=== PATIENT | male | born 1985 | race Caucasian/White ===

== ENCOUNTER 2025-04-17 21:50 | Emergency (ER) | payer OTHER, SELFPAY ==
[2025-04-17 21:52] VITALS: BP 134/88
[2025-04-17 22:12] LABS: Hematocrit 47.2 % (39.0-52.0); Hemoglobin 16.6 g/dL (13.0-18.0); Mean Corp Hgb Conc. 35.2 g/dL (33.0-37.0); Mean Corpuscular Volume 87.2 fL (80.0-94.0); Nucleated Red Blood Cells % 0 % (-); Platelet Count 207 10^3/uL (130-400); Red Cell Dist. Width 12.1 % (11.5-14.5)
[2025-04-17 22:24] LABS: ALT (SGPT) 39 U/L (0-50); AST (SGOT) 36 U/L (17-59); Albumin 5.2 g/dl (3.5-5.0); Alkaline Phosphatase 54 U/L (38-126); Blood Urea Nitrogen 18 mg/dl (9-20); Calcium 10.3 mg/dl (8.4-10.2); Carbon Dioxide 29 mmol/L (22-30); Chloride 99 mmol/L (98-107); Glucose 129 mg/dl (70-99); Lipase 66 U/L (23-300); Potassium 4.9 mmol/L (3.5-5.1); Sodium 136 mmol/L (135-145); Total Protein 8.5 g/dl (6.3-8.2); eGFR > 60.00
[2025-04-18 03:08] VITALS: BP 130/81
--- NOTE | 2025-04-18 03:49 | ED.GENMED ---
History of Present Illness
General
Chief Complaint: Fainting/Passed Out
Source: patient
Exam Limitations: none
Time Seen by Provider: 04/18/25 03:12
Nursing documentation reviewed up to this point in time: agreed with
History of Present Illness
History of Present Illness:
HPI:
This is a 41-year-old male who present presents to the ER today for concerns of a syncopal episode . He reports that He has had nausea, vomiting, and diarrhea for multiple hours today. He reports that he woke up yesterday nauseous and had multiple
episodes of vomiting and diarrhea. There is no blood in the stools. He denies any recent travel outside the country. He denies any recent antibiotics. He denies fever. Reports that arlier in the day, he has not been able to tolerate water or food.
He reports at times crampy abdominal discomfort but notes no pain currently. He reports that he was feeling the urge to vomit and was running to the bathroom and was crouched over the bathroom trash can. When he was vomiting, he felt sweaty And
dizzy and he said he stood up quickly to go lay down and when he stood up, he lost consciousness, falling with head strike. His partner living in the home with him heard a third and shouted up to him asking if he was OK and he reported that he was
OK. She walked upstairs and saw him on the ground with his head against the floor. He had clear speech at this time and told his he fell. He was oriented at the time.Patient reports that he has a mild headache right now and feels a bump on the
back of his head . He denies neck pain. He denies chest pain. He denies palpitations.
EXAM:
General: Patient is well appearing and in no acute distress; non-toxic
Skin: Warm and dry, no rashes or lesions
Head: Normocephalic, atraumatic, No palpable scalp hematoma.
Neck: No midline spinal tenderness
Eyes: Sclera non-icteric. EOMs intact.
Cardiac: Regular rate and rhythm, no murmurs
Peripheral Vascular: No lower extremity swelling or edema
Pulm: Normal respiratory effort, no wheezes, rales, or rhonchi
Abdomen: No abdominal tenderness to palpation
Neuro: CN II-XII intact, no focal neurologic deficits. Normal finger to nose, heel to lamb. Normal gait.
Psychiatric: Appropriate mood and affect.
ED COURSE:
Patient passed PO challenge
NUMBER AND COMPLEXITY OF PROBLEMS ADDRESSED AT THE ENCOUNTER
� Chronic conditions affecting care: n/a
� Acute Exacerbation and/or Progression of Chronic Illness:
� Differential Diagnosis includes: gastroenteritis, colitis, cardiac arrhythmia, orthostatic hypotension, vasovagal syncope, electrolyte derangement
AMOUNT AND/OR COMPLEXITY OF DATA TO BE REVIEWED AND ANALYZED
� I performed an independent evaluation of and my interpretation is:
EKG: normal sinus rhythm no ischemic changes
CT: no acute intracranial abnormality
X-rays: not indicated
Laboratory Studies:
-leukocytosis with left shift in setting of recurrent vomiting and gastroenteritis
-elevated fasting glucose likely stress response
Other:
� Review of other/old records: reviewed prior visit from 01/13/09
� Clinical information was obtained by an independent historian: provided history as well
� Prescriptions/Medications Considered but not given: n/a
� Further testing considered but not performed: n/a
RISK OF COMPLICATIONS AND/OR MORBIDITY OR MORTALITY OF PATIENT MANAGEMENT
� Social determinants of health affecting care: n/a
Patient has good outpatient follow up
� Escalation of care including admission/observation vs risk of discharge considered:
admission not indicated, patient stable for discharge
MDM/DISPOSITION
41 -year-old male with past medical history of appendectomy presents to the ER today with concerns of nausea, vomiting, and diarrhea. He subsequently has full episode after multiple episodes of vomiting . 'm physical exam, patient's vital signs are
stable. He is a febrile. He is well appearing. He does follow up with a primary care provider. He has a non-vocal neurologic exam. His heart is regular rate and rhythm with no murmur. Labs reviewed, leukocytosis noted. Elevated fasting glucose.
Total Jeremy Phillip slightly elevated, however in light of no transaminitis, likely Gilbert's syndrome. I suspect patient think episode is a vasovagal response from vomiting and dehydration. He was rehydrated with IV fluid fluids and given Zofran and
he was able to tolerate intake of food and water without subsequent vomiting. He is feeling much better. His CT scan shows no acute intracranial abnormality. His ECG is without ischemic changes or abnormal rhythm. Patient stable for discharge.
Review of Systems
Review of Systems
All Other Systems: ROS reviewed and negative except as documented in HPI and ROS
Phy Exam
Physical Exam
Physical Exam:
see hpi
Course
Orders/Labs/Results
Orders:
Orders
04/17/25 22:01
Complete Blood Count/With Diff Urgent
Comprehensive Metabolic Panel Urgent
Lipase Urgent
04/18/25
CT Head W/o Iv Contrast Urgent
Reason For Exam: syncope with head strike
04/18/25 03:15
Electrocardiogram (*1) Urgent
Reason for Study: Syncope
04/18/25 04:28
0.9% Sodium Chloride 1000 ml [Nss] 1,000 ml IV BOLUS
Ondansetron Injectable [Zofran] 4 mg IV NOW STA
Abnormal Lab Results
04/17/25
22:01
WBC 12.7 H 10^3/uL
(4.8-10.8)
Abs Immat Gran (auto) 0.1 H 10^3/uL
(0-0.05)
Absolute Neuts (auto) 11.6 H 10^3/uL
(1.4-6.5)
Absolute Lymphs (auto) 0.5 L 10^3/uL
(1.2-3.4)
Immature Gran % 0.6 H %
(0-0.5)
Neutrophils % 91.5 H %
(42.2-75.2)
Lymphocytes % 3.6 L %
(20.5-51.1)
Glucose 129 H mg/dl
(70-99)
Calcium 10.3 H mg/dl
(8.4-10.2)
Total Bilirubin 1.5 H mg/dl
(0.2-1.3)
Total Protein 8.5 H g/dl
(6.3-8.2)
Albumin 5.2 H g/dl
(3.5-5.0)
04/17/25 22:01
04/17/25 22:01
Vital Signs
Initial and Last Documented VS:
Initial Vital Signs
Temp Pulse Resp BP Pulse Ox
98.6 F 93 20 134/88 95
04/17/25 21:52 04/17/25 21:52 04/17/25 21:52 04/17/25 21:52 04/17/25 21:52
Last Documented Vital Signs
Temp Pulse Resp BP Pulse Ox
98.6 F 84 14 120/70 96
04/18/25 07:16 04/18/25 07:16 04/18/25 07:16 04/18/25 07:16 04/18/25 07:16
*Pulse Oximetry
SaO2: 98
Oxygen Mode of Delivery: Room air
Patient hypoxic: no
*Critical Care Note
Total Time (30-74mins, 75-104mins- exclusive of procedures): Not Applicable
ED Attending Note
-
Portions of this chart may have been created with voice recognition software.� Occasional wrong word or��sound alike� substitutions may have occurred due to the inherent limitations of voice recognition software.
Discharge Plan
Departure
Patient Disposition: Home (Routine Discharge)
Date of Disposition: 04/18/25
Time of Disposition: 06:41
Patient with high blood pressure during this ER visit?: Yes
Condition: Good
Discharge Problem:
Gastroenteritis, Vasovagal syncope
Instructions: Viral gastroenteritis in adults, Syncope (Fainting) (DC), BLOOD PRESSURE
Prescriptions:
New
ondansetron 4 mg tablet,disintegrating
4 mg PO Q4H PRN (Reason: nausea and vomiting) Qty: 8 0RF
Referrals:
Crystal Toscano, DO [Family Provider, Family Practice]
Stand Alone Forms: Return to Work
Activity Restrictions/Additional Instructions:
Please continue to monitor your symptoms. I recommend calling your primary care provider in one week to obtain repeat blood work. Your white blood cell count was elevated today which is common with infections.
You can take Zofran every 4 hours under the tongue as needed for your symptoms. Please stick to bland foods and eat small meals. Please stay well-hydrated.
PLEASE RETURN TO ER SHOULD YOU DEVELOP INTRACTABLE NAUSEA OR VOMITING, PERSISTENT TRACI PAIN, HIGH FEVERS, BLOODY STOOLS, OR ANY OTHER SIGNS OR SYMPTOMS WORRISOME TO YOU.
Interventions
Interventions:
*General Assessment Last Done: 04/17/25 21:52
*Neglect/Abuse Screening Last Done: 04/17/25 21:52
*ED COVID-19 Vaccine History Last Done: 04/18/25 02:40
*ED Influenza Vaccine History Last Done: 04/18/25 02:40
[facility] Risk Assessment Tool Last Done: 04/18/25 03:09
*Risk Screen - Suicide (C-SSRS) Last Done: 04/17/25 21:52
*Nursing Disposition Last Done: 04/18/25 07:16
ED- Cardiac Assessment Last Done: 04/18/25 02:40
ED- Neurological Assessment Last Done: 04/18/25 02:38
Discharge Date and Time
Discharge Date/Time: 04/18/25 07:18
Print Language: [id number]
[2025-04-18] MEDS: NSS 1000 IV (05:39)
[2025-04-18] MEDS: ZOFRAN 4 MG IV (05:39)
[2025-04-18 05:43] VITALS: BP 120/70
[2025-04-18 05:45] VITALS: BMI 25.9
[2025-04-18 07:16] VITALS: BP 120/70
== END 2025-04-18 07:18 | disposition home or self-care (01) ==
LOC: EMR 21:50
PROVIDERS: Student in an Organized Health Care Education/Training Program; EMERGENCY PHYSICIAN Emergency Medicine; FAMILY PHYSICIAN Family Medicine
DX: K52.9 Noninfective gastroenteritis and colitis, unspecified (principal); E86.0 Dehydration; R55 Syncope and collapse; Z90.49 Acquired absence of other specified parts of digestive tract
CPT/HCPCS: 99284; 96374; 96361; 70450; 80053; 83690; 85025; 93005